=== PATIENT | male | born 1970 | race Two or more races ===

== ENCOUNTER 2021-09-27 10:36 | Emergency (ER) | payer OTHER ==
[~2021-09-27] VITALS: Ht 180.3 cm; Wt 94.3 kg
[~2021-09-27 10:36] MED LIST: SYNTHROID100 MCG PO
[2021-09-27] MEDS ORDERED: KETO10TA2 PO (13:43)
== END 2021-09-27 14:16 | disposition home or self-care (01) ==
LOC: ER 10:36
DX: M62.838 Other muscle spasm (principal)